=== PATIENT | female | born 1990 | race Hispanic/Latino ===

== ENCOUNTER 2023-04-12 17:31 | Emergency (ER) | payer SELFPAY ==
[~2023-04-12] VITALS: Ht 154.9 cm; Wt 61.2 kg
[2023-04-12 18:32] VITALS: O2SAT 96
== END 2023-04-12 18:47 | disposition home or self-care (01) ==
LOC: FSED 17:42
DX: R10.31 Right lower quadrant pain (principal); F17.210 Nicotine dependence, cigarettes, uncomplicated
CPT/HCPCS: 80053; 85025; 99283